=== PATIENT | female | born 1975 | race Hispanic/Latino ===

== ENCOUNTER 2018-02-05 11:58 | Inpatient (IN) | payer SELFPAY ==
[2018-02-05] MEDS ORDERED: methylPREDNISolone Sod Succ/PF 125 MG/2 ML VIAL ONE ×2 (12:12→12:24)
[2018-02-05 12:36] LABS: #Basophils 0.1 thou/uL (0.0-0.2); #Eosinphils 1.3 thou/uL (0.0-0.7); #Lymphocytes 3.1 thou/uL (1.20-3.40); #Monocytes 0.6 thou/uL (0.11-0.59); #Neutrophils 4.2 thou/uL (1.40-6.50); %Basophils 1.1 % (0.0-1.0); %Eosinophils 13.7 % (0.0-10.0); %Lymphocytes 33.4 % (21.0-51.0); %Monocytes 6.6 % (0.0-10.0); %Neutrophils 45.2 % (42.0-75.0); Hemoglobin 14.1 g/dL (12.0-16.0); Mean Corpuscular HGB CONC 32.3 g/dL (32.0-36.0); Mean Corpuscular Hemoglobin 29.2 pg (27.0-31.0); Mean Corpuscular Volume 90.5 fL (78.0-98.0); Mean Platelet Volume 6.8 fL (7.4-10.4); Platelet Count 381 thou/uL (130-400); RBC Distribution Width 12.9 % (11.5-14.5); Red Blood Cell (RBC) Count 4.82 mill/uL (4.20-5.40); White Blood Cell (WBC) Count 9.3 thou/uL (4.8-10.8)
[2018-02-05 12:40] LABS: Actual Bicarbonate (HCO3a) 24.3 mEq/L (22-28); Analyzer IN Cardio ER; Base Excess (BEa) -1.4 mEq/L (-2.0 to +3.0); CO2 Tension 44.9 mmHg (35.0-45.0); Calcium, Ionized 1.15 mmol/L (1.12-1.30); Carboxyhemoglobin (COHb) 0.2 gm% (0.0-3.0); O2 Tension (PaO2) 263.8 mmHg (80.0-100.0); Potassium - ABG Lab 3.29 mmol/L (3.70-5.30); pH, Arterial 7.35 (7.35-7.45)
[2018-02-05 12:41] LABS: ALV-art Gradient -34.725 (0-20); Puncture Site RBA
[2018-02-05] MEDS ORDERED: Magnesium 2 GM/NS 0.9% 100 ML 2 GM in Premix Bag 1 BAG IVPB SCH (12:45)
[2018-02-05 12:58] LABS: ALT (SGPT) 14 U/L (8-55); AST (SGOT) 23 U/L (5-34); Albumin 4.2 g/dL (3.5-5.0); Alkaline Phosphatase 77 U/L (40-150); Anion Gap 12 mmol/L (10-20); BUN (Urea Nitrogen) 9 mg/dL (7.0-18.7); Bilirubin, Total 0.3 mg/dL (0.2-1.2); CK (CPK) 66 U/L (29-168); Calc. Creatinine Clearance 0 mL/min (70-130); Calcium 9.1 mg/dL (7.8-10.44); Carbon Dioxide 26 mmol/L (22-29); Chloride 105 mmol/L (98-107); Estimated GFR-MDRD Greater than 90; Globulin 4.2 g/dL (2.4-3.5); Glucose 117 mg/dL (70-105); Lipase 12 U/L (8-78); Potassium 4.1 mmol/L (3.5-5.1); Protein, Total 8.4 g/dL (6.0-8.3); Sodium 139 mmol/L (136-145)
[2018-02-05 13:02] LABS: CKMB 2.1 ng/mL (0-6.6); Troponin I Less than 0.010 ng/mL (< 0.028)
[2018-02-05 13:26] LABS: BHCG - Serum Negative (NEGATIVE); Pregs Control Background? CLEAR/WHITE (CLR/WHITE); Pregs Control Bar Appear? YES (CONTROL BAR)
--- NOTE | 2018-02-05 15:19 | RAD ---
PORTABLE CHEST: Date: 02/05/18 HISTORY: Dyspnea. FINDINGS: Heart size and mediastinum are within normal limits. Lungs are clear of any infiltrates. IMPRESSION: No active intrathoracic disease. POS: [facility]
[2018-02-05] MEDS ORDERED: Ondansetron ODT 4 MG TAB PO PRN (15:38)
[2018-02-05] MEDS ORDERED: Albuterol Sulfate 2.5 mg/3 ml Neb NEB PRN (15:38)
[2018-02-05] MEDS ORDERED: Ondansetron HCl/PF 4 MG/2 ML Vial IVP PRN (15:38)
[2018-02-05] MEDS ORDERED: Bisacodyl 5 MG TAB PO PRN (15:38)
[2018-02-05] MEDS ORDERED: Bisacodyl 10 MG SUPP PR PRN (15:38)
[2018-02-05] MEDS ORDERED: Calcium Carbonate 500 MG ChewTAB PO PRN (15:38)
[2018-02-05] MEDS ORDERED: Acetaminophen 650 MG Suppository PR PRN (15:38)
[2018-02-05] MEDS ORDERED: Acetaminophen 325 MG TAB PO PRN (15:38)
[2018-02-05 15:52] VITALS: BMI 28.0
[2018-02-05] MEDS: Sodium Chloride 0.9% 1,000 ML IV SCH ×2 (16:18→22:00)
[2018-02-05 16:55] LABS: HBSAB Concentration 0.56 mIU/mL; HIV (1/2) Antibody/Antigen Non-Reactive (NonReactive); HIV 1/2 INDEX 0.11 S/CO (<1.00); Hep B Surf AB Non-Reactive (NonReactive); Hep B Surf Ag Non-Reactive S/CO (NonReactive); Hep C IgG Ab Non-Reactive (NonReactive); Hep C Index 0.12 S/CO (0-0.79)
--- NOTE | 2018-02-05 16:55 | HP-2 ---
DATE OF SERVICE: 02/05/2018 PRIMARY CARE PHYSICIAN: Kiko holly, none. CODE STATUS: FULL. Code status discussed with the patient with use of green energy marketing analyst. RESIDENT: Adalid Farmer M.D. ATTENDING PHYSICIAN: Terence Nation M.D. SPECIALIST: None. CHIEF COMPLAINT: Shortness of breath. HISTORY OF PRESENT ILLNESS: Ms. Diogo Denton is a pleasant 42-year-old [place]e female who presents to the ER with a 1-day history of progressive worsening shortness of breath and dyspnea on exertion. She states she recently immigrated from [place] roughly one month ago and was living in [place] recently. She was seen at ER in [place] 15 days ago for an asthma attack and received inhaled steroids, albuterol, and an oral pill that she was unsure of its identity. She states she ran out of her oral medications and one of the inhalers 5 days ago and ran out of her second inhaler yesterday leading to her progressive worsening shortness of breath. Additionally, she endorses chills, mild diffuse chest pain and cough. She denies fever, nausea, vomiting, numbness or weakness. She reports chronic pain in her hands and feet. She states that she is supposed to be on asthma medication, but has been out, but has difficulty purchasing them due to her uninsured status. EMERGENCY ROOM COURSE: While in the ER, the patient was seen and evaluated by Dr. David Cifuentes. Routine labs were drawn. EKG was obtained as was a chest x- ray. She received DuoNebs x3, Solu-Medrol 125 mg IV push and magnesium sulfate IV push 2 grams. On initial presentation, her oxygen saturations were in the 70s on room air; however, after intervention, she was satting in the 90s on room air. PAST MEDICAL HISTORY: 1. Asthma. 2. Arthritis, not otherwise specified. PAST SURGICAL HISTORY: None. FAMILY HISTORY: She reports diabetes in her mother. SOCIAL HISTORY: Patient denies current or former tobacco, alcohol or illicit drug use. She recently moved from [place]. She states that she is unsure if she has ever been tested for tuberculosis, but denies having tuberculosis. ALLERGIES: None. MEDICATIONS: The patient states she is supposed to be on asthma medicines, but is unsure of which one she has previously taken. REVIEW OF SYSTEMS: GENERAL: Endorses chills, denies fever. EYES: Denies blurry vision, double vision. ENT: Denies runny nose, sore throat. CARDIOVASCULAR: Endorses diffuse chest pain. Denies palpitations. PULMONARY: Endorses dyspnea on exertion and shortness of breath and cough. ABDOMEN: Denies nausea, vomiting, diarrhea, constipation or abdominal pain. GENITOURINARY: Denies dysuria, polyuria. MUSCULOSKELETAL: Endorses foot pain. Denies joint tenderness. NEUROLOGIC: Denies numbness, weakness. SKIN: Denies rash, lesions, jaundice, itching. PSYCHIATRIC: Denies anxiety, depression. PHYSICAL EXAMINATION: VITAL SIGNS: Blood pressure 122/77, pulse 120, respiratory rate 22, pulse ox 99 % on room air, current weight 65.8 kilos. GENERAL: No acute distress. Alert and oriented x4, appropriately interactive. Well-developed, well-nourished. HEENT: Normocephalic, atraumatic. PERRLA, EOMI. Conjunctivae within normal limits. External ears, nose grossly normal. Oropharynx reveals dry mucous membranes. No posterior pharyngeal erythema or exudate. NECK: Supple, without lymphadenopathy, thyromegaly. HEART: Tachycardic rate, regular rhythm, no murmurs, rubs or gallops. Radial pulses, and pedal pulses 2+ bilaterally. LUNGS: Normal effort without retractions. Lungs have diffuse wheezing throughout all lung davison. Patient has nonlabored breathing. ABDOMEN: Soft, nontender to palpation. No masses, guarding, or rigidity noted. MUSCULOSKELETAL: No gross deformities, normal range of motion. EXTREMITIES: No clubbing, cyanosis or edema. NEUROLOGIC: No focal deficits. Sensation grossly intact. SKIN: Warm, dry, and intact without lesions. PSYCHIATRIC: Mood and affect are appropriate. LABORATORY DATA: 1. CBC: White blood cell count of 9.3, hemoglobin 14.1, hematocrit 43.6, MCV 90.5, platelets 381, neutrophils 45.2%. 2. CMP: Sodium 139, potassium 4.1, chloride 105, bicarbonate 26, BUN 6, creatinine 0.66, glucose 177, calcium 9.1, total bilirubin 0.3, AST 23, ALT 14, alkaline phosphatase 77. Serum protein 8.4, albumin 4.2, globulin 4.2. 3. Cardiac markers, CK-MB 2.1, troponin less than 0.010, BNP 85. Other labs, lipase 12 4. Serum test negative. 5. Arterial blood gas pH 7.35, pCO2 45, pO2 263.8, bicarbonate 24.3. ABG obtained on FIO2 of 40%. 6. Chest x-ray reviewed by me revealed no acute processes. 7. EKG sinus tachycardia with rate of 109, AZ interval 143, QTC interval 441 with voltage criteria for left ventricular hypertrophy and some nonspecific ST wave changes. ASSESSMENT AND PLAN: Ms. Diogo Denton is a 42-year-old [place]e female who presents to the emergency room with an acute asthma exacerbation and responded appropriately to intervention. 1. Acute hypoxic respiratory failure secondary to asthma exacerbation. On initial presentation, the patient had oxygen saturation of 72% on room air. Her respiratory failure has resolved at this time with DuoNebs, steroids and magnesium. We will continue p.o. prednisone 40 mg daily with q.4 hours scheduled DuoNebs and q.2 hours p.r.n. albuterol nebulizers. We will restart inhaled fluticasone for maintenance dose. Case management has been consulted to look into assistance programs for the patient to afford her outpatient medications. Given her young age, an Infth-1-[id number] level will be checked. 2. Recent immigration from [place]. We will check QuantiFERON gold, HIV, RPR , hepatitis B and hepatitis C. 3. Arthritis, pain management p.r.n. 4. Sinus Tachycardia. likely secondary to Duonebs vs volume depletion. Give IV NS x2L at 150 mL/hr. 5. Diet: Regular. 6. Prophylaxis, none. 7. Code status: FULL. DISPOSITION AND ESTIMATED LENGTH OF STAY: She is admitted under inpatient status and placed on the medical floor. Length of stay is likely less than 2 midnights. History and physical exam and management of this patient were discussed with Dr. Nation who was in agreement unless otherwise stated in his history and physical. A green energy marketing analyst was used to perform this history and physical. [employer] [place] [id number]. [facility]
[2018-02-05 16:56] LABS: Syphilis Antibody Nonreactive (Nonreactive); Syphilis Antibody Index 0.05 S/CO (<1.00 Non-Reactive)
[2018-02-05] MEDS: Ipratropium Bromide 2.5 ml Neb NEB SCH ×2 (18:11→22:20)
[2018-02-05] MEDS: Mometasone 200 MCG HFA INHALER INH SCH (18:14)
--- NOTE | 2018-02-05 21:53 | HP ---
CHIEF COMPLAINT: Asthma. HISTORY OF PRESENT ILLNESS: Ms. Lind is a 42-year-old, [place] lady who does not speak [place]. She presented to our ER with what appeared to be an exacerbation of asthma. She was given some Duo Neb treatments, steroids, and she looks and feels much better. She has a many year history of asthma , but we have never seen her for this condition before. PHYSICAL EXAMINATION: VITAL SIGNS: Stable. GENERAL: She was awake, alert. She appeared to be in no respiratory distress. EAR, NOSE, AND THROAT: No signs of infection. NECK: Supple. CARDIAC: Heart rhythm is regular, without gallop or murmur noted. LUNGS: Clear, without rales, rhonchi, or wheezes. She was not using accessory muscles. ABDOMEN: Flat and soft, without guarding, rebound, rigidity. NEUROLOGIC: No focal deficits. LABORATORY DATA: White count 9300, hemoglobin 14.1, hematocrit 43.6 with an MCV of 91. ABGs on a 40 % FIO2 showed a pH 7.35, pCO2 of 44.9, pO2 was 263.8. Chemistries: Her sodium was 139, potassium 4.1, chloride 105, bicarbonate 26, BUN 9, creatinine 0.66 . ASSESSMENT: Asthma exacerbation. PLAN: Admit. Continue DuoNebs. Continue steroids.
[2018-02-06] MEDS: Ipratropium Bromide 2.5 ml Neb NEB SCH ×4 (01:57→14:58)
--- NOTE | 2018-02-06 06:23 | PDOC.FM ---
- Subjective Subjective: Pt says she does not have SOB this morning, denies pain. - Objective Vital Signs & Weight: Vital Signs (12 hours) Temp Pulse Resp BP Pulse Ox 02/06/18 04:29 97.7 F 89 18 101/69 99 02/06/18 02:07 98 02/06/18 01:57 98 12 98 02/06/18 00:23 97.8 F 88 16 113/62 98 02/05/18 22:20 92 12 90 L 02/05/18 20:00 95 02/05/18 19:46 97.6 F 98 16 115/71 93 L Weight Weight 65 kg I&O: 02/04/18 02/05/18 02/06/18 06:59 06:59 06:59 Intake Total 2500 Balance 2500 Result Diagrams: 02/05/18 12:30 02/05/18 Unknown Phys Exam - Physical Examination Constitutional: NAD HEENT: PERRLA, moist MMs Neck: no nodes, supple Diffuse wheezing present Cardiovascular: RRR, no significant murmur Gastrointestinal: soft, no distention, positive bowel sounds Musculoskeletal: no edema, pulses present Neurological: moves all 4 limbs Psychiatric: normal affect, A&O x 3 Dx/Plan (1) Acute respiratory failure with hypoxia Code(s): J96.01 - ACUTE RESPIRATORY FAILURE WITH HYPOXIA Status: Acute (2) History and physical examination, immigration Code(s): Z02.89 - ENCOUNTER FOR OTHER ADMINISTRATIVE EXAMINATIONS Status: Acute (3) Arthritis Code(s): M19.90 - UNSPECIFIED OSTEOARTHRITIS, UNSPECIFIED SITE Status: Acute (4) Sinus tachycardia Code(s): R00.0 - TACHYCARDIA, UNSPECIFIED Status: Acute - Plan Plan: 42 yo F with PMH asthma presents with acute hypoxic respiratory failure 2/2 to asthma exacerbation Acute hypoxic respiratory failure 2/2 asthma exacerbation -Presented with O2 sat 72% on RA, currently on 2L NC -Resolved with duonebs, steroids, and mag -PO prednisone 40 mg daily with q4 hrs scheduled donebs, PRN albuterol nebs -Restart inhaled fluticasone -Case management consult for orthopedic physician assistant programs to pay for medication -[id number] level pending Recent immigration from [place] -Quantiferon gold pending - HIV, RPR, hep B and C negative; Hep b non-immune -Hep B vaccine today Arthritis -Pain meds PRN Sinus Tach, resolved -likely 2/2 to duonebs vs volume depletion - volume resuscitated
[2018-02-06] MEDS: Mometasone 200 MCG HFA INHALER INH SCH (06:29)
[2018-02-06] MEDS ORDERED: predniSONE 20 MG TAB PO SCH (09:00)
[2018-02-06] MEDS ORDERED: Recombivax (HEP-B) 5 MCG/0.5 ML VIAL IM ONE (09:09)
[2018-02-06] MEDS ORDERED: Hepatitis B Vaccine 10 MCG/0.5 ML SYR IM ONE (10:00)
--- NOTE | 2018-02-06 11:54 | PRG ---
DATE OF SERVICE: 02/06/2018 SUBJECTIVE: Ms. Lind looks and feels much better this morning. She is still having occasional w heezing, but overall she states she feels better. We can likely discharge her later today as long as we can get arrangements made for albuterol inhalers and an inhaled corticosteroid as well as prednis one dosing for the next 5 days. If not, she may likely end up back in the ER in a week or two.
[2018-02-06 18:05] VITALS: BP 130/78; TEMP 97.7
--- NOTE | 2018-02-07 15:51 | DIS-2 ---
DATE OF ADMISSION: 02/05/2018 DATE OF DISCHARGE: 02/06/2018 RESIDENT: Sheree Tsai MD ADMITTING ATTENDING: Dr. Nation. DISCHARGE ATTENDING: Dr. Nation. CONSULTATIONS: None. PROCEDURES: On 02/05/2018, chest x-ray, impression: No active intrathoracic disease. PRIMARY DIAGNOSIS: Acute hypoxic respiratory failure secondary to asthma exacerbation. SECONDARY DIAGNOSES: 1. Recent immigration from [place]. 2. Arthritis. 3. Sinus tachycardia. HISTORY OF PRESENT ILLNESS AND HOSPITAL COURSE: Ms. Diogo Denton is a pleasant 42-year-old [place]oan female who presented to the ED with a 1 day history of progressive worsening shortness of breath and dyspnea on exertion. She stated she recently immigrated from [place] roughly one month ago and was living in [place] recently. She was seen at the ER in [place] 15 days ago for an asthma attack and received inhaled steroids, albuterol, and an oral pill that she was unsure of its identity. She states she ran out of her oral medications, one of the inhalers 5 days ago and ran out of her second inhaler yesterday leading to her progressive worsening shortness of breath. Additionally, she endorsed chills, mild diffuse chest pain and cough. She denied fever, nausea, vomiting, numbness or weakness. She reported chronic pain in her hands and feet. She stated that she is supposed to be on asthma medication, but she has been out, due to difficulty purchasing them because of her uninsured status. In the ED, routine labs were drawn. EKG was obtained and a chest x-ray which were normal. She received DuoNebs x3, Solu-Medrol and mag sulfate. On initial presentation, her O2 sats were in the 70s on room air. After intervention, she was satting 90s on room air. Case management was consulted the next day for assistance programs help with pay for medications. An alpha 1 antitrypsin level was also drawn and is pending. Quanterferon gold was also drawn and is pending. HIV, RPR, hepatitis B and C were negative. She was non-hep B immune, so she received a Hep B vaccination during her hospitalization stay. Her sinus tachycardia resolved with volume resuscitation. She was discharged in stable condition to home. DISCHARGE MEDICATIONS: 1. Albuterol sulfate HFA 200 puff inhaler 2 puffs b.i.d., daily. 2. Beclomethasone 40 puff inhaler b.i.d. 3. Prednisone 40 mg p.o. daily for 3 days. DISPOSITION: Stable. DISCHARGE INSTRUCTIONS: 1. Location: Home. 2. Diet: Regular. 3. Activity: As tolerated. 4. Follow up with your primary care physician within 7 days. You may come to us to be seen at [facility] if you did not have another primary care physician. The patient was given the healthcare form to fill out to be seen at [facility] if she would like to establish her care there. Pt will need a repeat Hep B vaccine in 1 month, and a third dose in 6 months. MTDD
--- NOTE | 2018-02-08 18:00 | EKG ---
Test Reason : Blood Pressure : / mmHG Vent. Rate : 109 BPM Atrial Rate : 109 BPM P-R Int : 148 ms QRS Dur : 064 ms QT Int : 328 ms P-R-T Axes : -24 -10 -11 degrees QTc Int : 441 ms Sinus tachycardia Voltage criteria for left ventricular hypertrophy Nonspecific ST and T wave abnormality Abnormal ECG Confirmed by ALDEN WILHELM, MICKEY ([id number]), science editor LUIS COTTON ([id number]) on 02/08/2018 5:59:43 PM Referred By: Confirmed By:MICKEY RUANO MD
== END 2018-02-06 18:09 | disposition home or self-care (01) | DRG 189 ==
LOC: ERS 11:58 → T4-A 15:33
PROVIDERS: ADMIT Family Medicine; ATTEND Family Medicine
DX: J96.01 Acute respiratory failure with hypoxia (principal); J45.901 Unspecified asthma with (acute) exacerbation; M19.90 Unspecified osteoarthritis, unspecified site; R00.0 Tachycardia, unspecified; Z83.3 Family history of diabetes mellitus
CPT/HCPCS: 36415; 71045; 80053; 82103; 82553; 82805; 83690; 83880; 84484; 84703; 85025; 86480; 86706; 86780; 86803; 87340; 87389; 90746; 93005; 94640; 94760; J2930; J3475; J7506; J7620; J7644